=== PATIENT | female | born 1970 | race Two or more races ===

== ENCOUNTER → 2019-01-30 | Outpatient (CLI) | payer OTHER ==
[~2019-01-30] MED LIST: CONTRAST GIVEN. MC PRN; IOHEXOL 300 MG/ML 100ML VIAL. IV ONE
[2019-01-30 09:31] LABS: CREATININE 0.9 mg/dL (0.6-1.0); GFR 67.1
--- NOTE | 2019-01-30 10:07 | RAD ---
PQRS Compliance statement: One or more of the following individualized dose reduction techniques were utilized for this examination: 1. Automated exposure control. 2. Adjustment of the mA and/or kV according to patient size. 3. Use of iterative reconstruction technique. Indication:Hypoechoic liver lesion. TECHNIQUE: CT abdomen without and with IV contrast with multiplanar reformats. Arterial, venous and delayed phase images were obtained. COMPARISON: Heart is normal in size. No pericardial or pleural effusion. Clear lung bases. Hepatic steatosis. No focal liver lesion. No radiopaque gallstones. Spleen is unenlarged and shows no focal lesion. Pancreas, adrenals are within normal limits. No nephrolithiasis, hydronephrosis or suspicious renal lesion. No enlarged retroperitoneal adenopathy. Visualized bowel is within normal limits. No suspicious bony lesion. IMPRESSION: No focal liver lesion. Mild hepatic steatosis. FINDINGS: Electronically signed by: Finesse De Leon DO (01/30/2019 10:04 AM) [facility]
== END | disposition home or self-care (01) ==
LOC: CT 08:44
PROVIDERS: ATTEND Physician Assistant
DX: K76.0 Fatty (change of) liver, not elsewhere classified (principal)
CPT/HCPCS: 36415; 74170; 82565; 84520; Q9967